=== PATIENT | female | born 1965 | race Caucasian/White ===

== ENCOUNTER 2022-12-12 19:26 | Emergency (ER) | payer BC ==
[~2022-12-12] VITALS: Ht 172.7 cm; Wt 82.0 kg
[2022-12-12 20:05] VITALS: BP 133/78; PULSE 80; RESP 18; TEMP 97.6; O2SAT 100
== END 2022-12-12 20:41 | disposition left against medical advice (07) ==
LOC: ER 19:26
DX: Z53.21 Procedure and treatment not carried out due to patient leaving prior to being seen by health care provider (principal)
CPT/HCPCS: 99281